=== PATIENT | female | born 1985 | race Caucasian/White ===

== ENCOUNTER 2021-04-09 19:34 | Emergency (ER) | payer OTHER, SELFPAY ==
--- NOTE | ~2021-04-09 | XR_ITS ---
[[id number] ] INDICATION: Right-sided rib pain for 3 weeks TECHNIQUE: Frontal projection of the upper right ribs, frontal projection of the lower right ribs, ob lique projection of all the right ribs, frontal inspiratory chest x-ray for interpretation. FINDINGS: There are no displaced rib fractures identified. There are no soft tissue abnormality see n. The lungs are clear. IMPRESSION: 1:No displaced rib fractures. Reviewed, dictated and finalized at location A.
--- NOTE | 2021-04-09 19:43 | ED.GENADULT ---
HPI - General Adult General Chief complaint: Unspecified Stated complaint: Rib Pain History of Present Illness HPI narrative: The patient, on several medications, presents with right rib discomfort. Patient states she has about 1/2-month history of right rib pain is mild, worse with motion, better at rest that began after horseplay or a squeezing injury after she fell off bed. She has had slightly worsening pain the last couple days which prompted her visit; no fever, cough, shortness of breath, abdominal pain, nausea/vomiting, urinary changes Related Data Home Medications Medication Instructions Recorded Confirmed emtricitabine-tenofovir (TDF) tablet 04/09/21 levothyroxine 04/09/21 testosterone cypionate mg 04/09/21 Allergies Allergy/AdvReac Type Severity Reaction Status Date / Time No Known Allergies Allergy Verified 04/09/21 19:41 Review of Systems Review of Systems: General/Constitutional: No weight loss,fever Eyes: N0: Redness,discharge Ears/Nose/Throat: No: Epistaxis,ear discharge Respiratory: Denies: Hemoptysis Gastrointestinal: No Vomiting, Bleeding-rectal Skin: No Lumps, eruption Neurologic: No Focal Weakness,Sz Hematologic: Denies: Petechiae/Purpura Psychiatric: No: Suicida ideationl All Other Systems: Reviewed and Negative [facility] Comments At time of signature, agree with nursing past medical, surgical, social and family history. There is no relevant family history pertinent to the presenting complaint Exam Narrative: General Appearance: Well appearing, Conjunctiva clear Ears: External ear normal Nose: Normal nose Mouth/Throat: Normal appearing, Normal lips Supple Respiratory: Airway patent, No respiratory distress, tender right ribs T9-11 ant axillary line Cardiovascular: RRR Abdomen: Soft, Non-tender, Musculoskeletal: Full ROM Skin: Warm, Dry Neurological: A&O x3, Normal affect Course Course Emergency Course: Films visualized, interpreted by radiologist, agree, normal see report Vital Signs Vital signs: Vital Signs Temperature 98.2 F 04/09/21 19:54 Pulse Rate 74 04/09/21 19:54 Respiratory Rate 18 04/09/21 19:54 Blood Pressure 118/66 04/09/21 19:54 Pulse Oximetry 100 04/09/21 19:54 Temperature 98.2 F 04/09/21 19:54 Pulse Rate 74 04/09/21 19:54 Respiratory Rate 18 04/09/21 19:54 Blood Pressure 118/66 10/26/21 19:54 Pulse Oximetry 100 04/09/21 19:54 Medical Decision Making Vital Signs Vital Signs: Vital Signs Temperature 98.2 F 04/09/21 19:54 Pulse Rate 74 04/09/21 19:54 Respiratory Rate 18 04/09/21 19:54 Blood Pressure 118/66 04/09/21 19:54 Pulse Oximetry 100 04/09/21 19:54 Temperature 98.2 F 04/09/21 19:54 Pulse Rate 74 04/09/21 19:54 Respiratory Rate 18 04/09/21 19:54 Blood Pressure 118/66 04/09/21 19:54 Pulse Oximetry 100 04/09/21 19:54 Discharge Plan Discharge Clinical Impression: Rib injury Patient Disposition: Home, Self-Care Condition: Stable Instructions: Rib Contusion (ED) Prescriptions: New tramadol 50 mg tablet 50 - 75 mg PO BID PRN (Reason: pain) Qty: 30 RF: 0 No Action levothyroxine 88 mcg tablet RF: 0 testosterone cypionate 200 mg/mL oil RF: 0 emtricitabine-tenofovir (TDF) 200-300 mg tablet RF: 0 Follow-up/Referrals: Khushbu Lane MD [Primary Care Provider] -
[2021-04-09 19:54] VITALS: BP 118/66; PULSE 74; RESP 18; TEMP 36.8; O2SAT 100
== END 2021-04-09 20:14 | disposition home or self-care (01) ==
PROVIDERS: Emergency Provider Emergency Medicine; PCP Family Medicine
DX: S29.9XXA Unspecified injury of thorax, initial encounter (principal); X58.XXXA Exposure to other specified factors, initial encounter; E06.3 Autoimmune thyroiditis; Z21 Asymptomatic human immunodeficiency virus [HIV] infection status
CPT/HCPCS: 71101; 99203; G0463